=== PATIENT | female | born 1955 ===

== ENCOUNTER 2021-11-21 10:12 | Outpatient (REF) | payer MEDICAID, SELFPAY ==
--- NOTE | ~2021-11-21 | US_ITS ---
EXAMINATION: US RETROPERITONEAL COMPLETE (RENAL) CLINICAL INFORMATION: Hematuria. COMPARISON: None TECHNIQUE: Real-time imaging of the kidneys and bladder. FINDINGS: RIGHT KIDNEY: 10.9 x 4.2 x 5.3 cm (SAG x AP x TRV). The kidney is normal in size, contour, and echogenicity. Renal cortical thickness is normal. No focal parenchymal lesions or hydronephrosis. There is an echogenic stone without shadowing in the upper pole cortex measuring 0.3 x 0.4 cm and similar lower pole echogenic stone without shadowing measuring 0.5 x 0.3 cm. The lack of shadowing could represent small calcifications. There is no caliectasis. However, there is mild pelvic fullness visualized. LEFT KIDNEY: 11.0 x 5.0 x 4.7 cm (SAG x AP x TRV). The kidney is normal in size, contour, and echogenicity. Renal cortical thickness is normal. No calculi or focal parenchymal lesions. No hydronephrosis. BLADDER: Well distended and normal. Bilateral ureteral jets are demonstrated. Prevoid bladder volume is 238 mL. Postvoid bladder volume is 23.8 mL. US/US retroperitoneal comp IMPRESSION: Small echogenic stones versus calcification in the upper and lower pole right kidney but no caliectasis seen. There is mild right renal pelvic fullness. The left kidney is unremarkable. Small postvoid residual volume in the bladder. Normal bilateral ureteral jets seen.
== END 2021-11-21 10:13 | disposition home or self-care (01) ==
LOC: HO.US 10:12
PROVIDERS: PCP Nurse Practitioner Community Health; Visit Provider Nurse Practitioner Community Health
DX: R31.9 Hematuria, unspecified (principal)
CPT/HCPCS: 76770

== ENCOUNTER 2021-11-29 09:43 | Outpatient (REF) | payer MEDICAID, SELFPAY ==
--- NOTE | ~2021-11-29 | MM_ITS ---
EXAMINATION: MM SCREENING DIGITAL BREAST TOMOSYNTHESIS, BILATERAL CLINICAL INFORMATION: Screening. Asymptomatic. The lifetime risk of breast cancer based on the Tyrer-Cuzick Model is 4%. COMPARISON: Mammography: 11/04/2018, 05/05/2016, 02/23/2014. TECHNIQUE: Digital breast tomosynthesis is performed in both the craniocaudal and mediolateral oblique views along with computer-aided detection (CAD). Synthesized 2D images are generated from the tomosynthesis. FINDINGS: There are scattered areas of fibroglandular density (ACR BI-RADS breast composition Category b). There are no significant masses, abnormal calcifications, or other abnormalities. Parenchymal pattern is similar to prior studies. There is no developing density or architectural abnormality. The axilla and skin contours are unremarkable. No significant changes. MM/MM tomosynthesis screening BI IMPRESSION: No mammographic evidence of malignancy. ASSESSMENT: BI-RADS 1: Negative RECOMMENDATION: Routine annual mammography screening. This patient's information was entered into a reminder system with a target due date for their next mammogram.
== END 2021-11-29 09:44 | disposition home or self-care (01) ==
LOC: HO.MAMMO 09:43
PROVIDERS: PCP Nurse Practitioner Community Health; Visit Provider Nurse Practitioner Community Health
DX: Z12.31 Encounter for screening mammogram for malignant neoplasm of breast (principal)
CPT/HCPCS: 77063; 77067

== ENCOUNTER 2022-02-07 15:00 | Outpatient (RCR) | payer MEDICAID, SELFPAY | END 2022-02-25 17:47 | disposition home or self-care (01) | LOC: HO.PT 15:00 | PROVIDERS: PCP Nurse Practitioner Community Health; Visit Provider Nurse Practitioner Community Health | DX: M75.42 Impingement syndrome of left shoulder (principal) | CPT/HCPCS: 97110; 97140; 97162; 97530 ==

== ENCOUNTER → 2022-02-20 13:20 | Outpatient (BNVA) | payer MEDICAID, SELFPAY | PROVIDERS: PCP Nurse Practitioner Community Health | DX: N20.0 Calculus of kidney (principal) | CPT/HCPCS: 99202 ==

== ENCOUNTER 2022-03-27 06:53 | Outpatient (REF) | payer MEDICAID, SELFPAY ==
--- NOTE | ~2022-03-27 | XR_ITS ---
EXAMINATION: XR SHOULDER, LEFT CLINICAL INFORMATION: Pain. COMPARISON: None TECHNIQUE: Three views of the left shoulder. FINDINGS: There is loss of glenohumeral and AC joint space with inferior periarticular spurring. No visible acute fracture, dislocation or subluxation seen. The soft tissues are normal. XR/XR shoulder LT min 2V IMPRESSION: Mild degenerative changes glenohumeral and AC joint. No visible acute fracture, dislocation or lytic process seen.
== END 2022-03-27 06:54 | disposition home or self-care (01) ==
LOC: HO.HOSX 06:53
PROVIDERS: Visit Provider Physician Assistant
DX: M19.012 Primary osteoarthritis, left shoulder (principal)
CPT/HCPCS: 73030; 99202

== ENCOUNTER 2022-11-13 10:56 | Outpatient (REF) | payer MEDICARE, MEDICAID, SELFPAY ==
--- NOTE | ~2022-11-13 | US_ITS ---
EXAMINATION: US RETROPERITONEAL LIMITED (RENAL ONLY) CLINICAL INFORMATION: Calculus of kidney. COMPARISON: Ultrasound kidneys and bladder 11/21/2021. TECHNIQUE: Real-time imaging of the kidneys. FINDINGS: RIGHT KIDNEY: 11.5 x 4.0 x 5.6 cm (SAG x AP x TRV). The kidney is normal in size, contour, and echogenicity. Renal cortical thickness is normal. No calculi or focal parenchymal lesions. No hydronephrosis. There is a 3 mm echogenic focus in the upper pole of the right kidney. No associated shadowing. LEFT KIDNEY: 10.4 x 5.0 x 5.8 cm (SAG x AP x TRV). The kidney is normal in size, contour, and echogenicity. Renal cortical thickness is normal. No focal parenchymal lesions or hydronephrosis. There is a 2.2 cm echogenic shadowing focus in the left mid-lower kidney consistent with a calculus. There is slight prominence of the adjacent calyx. US/US renal BI IMPRESSION: 2.2 cm left mid-lower renal calculus with slight prominence of the adjacent lower pole calyx. Was not seen previously. 3 mm echogenic nonshadowing focus in the cortex of the upper pole the right kidney. This was present previously and is unchanged.
== END 2022-11-13 10:57 | disposition home or self-care (01) ==
LOC: HO.US 10:56
PROVIDERS: Visit Provider Urology
DX: N20.0 Calculus of kidney (principal)
CPT/HCPCS: 76775

== ENCOUNTER 2023-08-12 15:14 | Outpatient (REF) | payer MEDICARE, MEDICAID, SELFPAY | END 2023-08-12 15:15 | disposition home or self-care (01) | LOC: HO.US 15:14 | PROVIDERS: Absent Provider Urology; PCP Nurse Practitioner Community Health; Visit Provider Nurse Practitioner Community Health | DX: R10.9 Unspecified abdominal pain (principal) | CPT/HCPCS: 76770 ==

== ENCOUNTER 2023-08-13 07:32 | Outpatient (REF) | payer MEDICARE, MEDICAID, SELFPAY ==
[2023-08-13 07:48] LABS: MANUAL DIFF FLAG NO
[2023-08-13 08:49] LABS: Basophils Absolute Auto 0.1 X10*3/uL (0.0-0.2); Basophils Percent Auto 0.8 % (0-2); Eosinophils Absolute Auto 0.1 X10*3/uL (0.0-0.4); Eosinophils Percent Auto 1.6 % (0-4); Hematocrit 45.4 % (37.0-47.0); Hemoglobin 14.2 g/dl (12.0-16.0); Imm Gran Abs Auto 0.03 X10*3/uL (0.00-0.03); Imm Gran Pct Auto 0.5 % (0.0-0.4); Lymphocytes Absolute Auto 2.4 X10*3/uL (1.2-4.9); Lymphocytes Percent Auto 39.2 % (20-40); Mean Corpuscular HGB Conc 31.3 g/dl (31.0-35.0); Mean Corpuscular Hemoglobin 30.6 pg (27.0-33.0); Mean Corpuscular Volume 97.8 fL (80.0-98.0); Mean Platelet Volume 9.7 fL (9.4-12.3); Monocytes Absolute Auto 0.5 X10*3/uL (0.1-1.2); Monocytes Percent Auto 8.4 % (2-11); Neutrophils Absolute Auto 3.1 x10*3/uL (2.0-8.3); Neutrophils Percent Auto 49.5 % (45-73); Platelet Count 309 X10*3/uL (160-400); Red Blood Count 4.64 X10*6/uL (4.20-5.50); Red Cell Distribution Width 12.3 % (11.0-16.0); White Blood Count 6.2 X10*3/uL (4.8-10.8)
[2023-08-13 09:17] LABS: Alanine Aminotransferase 13 U/L (0-31); Albumin Level 4.5 g/dL (3.5-5.0); Alkaline Phosphatase 72 U/L (39-117); Anion Gap 14 (12-20); Aspartate Amino Transferase 13 U/L (5-31); Bilirubin Total 0.8 mg/dL (0.0-1.0); Blood Urea Nitrogen 16 mg/dL (9-16); Calcium 9.5 mg/dL (8.4-10.2); Carbon Dioxide 26 mmol/L (22-29); Chloride 106 mmol/L (96-108); Cholesterol 218 mg/dL (<200); Estimated Glomerular Filt Rate > 60; Glucose Random 114 mg/dL (60-115); HDL Cholesterol 55 mg/dL (>40); LDL Cholesterol Calculated 138 mg/dL (<100); Potassium 4.2 mmol/L (3.3-5.1); Sodium 142 mmol/L (135-145); Total Protein 7.8 g/dL (6.5-8.0); Triglycerides 128 mg/dL (<150)
== END 2023-08-13 07:33 | disposition home or self-care (01) ==
LOC: HO.LAB 07:32
PROVIDERS: Visit Provider Nurse Practitioner Community Health
DX: Z00.00 Encounter for general adult medical examination without abnormal findings (principal); R10.9 Unspecified abdominal pain
CPT/HCPCS: 36415; 80053; 80061; 85025

== ENCOUNTER 2023-09-03 11:24 | Outpatient (AMB) | payer MEDICARE, MEDICAID, SELFPAY ==
--- NOTE | 2023-09-03 11:36 | A.OFFVIS_ITS ---
Intake Intake Visit Reasons: follow up/ US Intake Note: Patient presents today for a follow-up on US Results: Meds- None Allergies to Antibiotic- No Known Allergies Blood Thinner- None Automobile Glass Technician Required: No Accompanied by: Daughter Allergies No Known Allergies Allergy (Mild, Verified 02/20/22 13:22) NA HPI HPI Comments History of Present Illness Details Tessa is a 67-year-old female who presents today to the office for a follow-up. 09/03/2023? She is followed today for US results. She has seen Dr. Novak on 02/20/2022 for kidney stones. Renal US in 6 months was ordered during that time. The Patient is not on any medications. She states that she has been healthy, she does take vitamins, calcium, magnesium, vitamin D supplements, as well as multi-vitamins. She states that she was diagnosed with kidney stones in [address] Novak on 02/20/2022. I reviewed the renal US results from 08/12/2023 revealed A 1.6 cm shadowing left renal lower pole calculus is seen. No definite right renal calculus is seen. I have discussed that there is a significant conflicting in measurements comparing to the 11/2022, and 08/2022 US. I want to further evaluate the kidneys with a CAT scan in follow-up. 09/03/2023: Plan: 24-hour urine collecti on test was ordered. CT stone protocol. Follow-up via Tele-health to discuss the results. Review of Systems Const All systems reviewed & are unremarkable except as noted in HPI and below Reports no additional complaints Eyes Reports no additional complaints ENT Reports no additional complaints Card Denies dyspnea Resp Denies cough and Denies dyspnea GI Reports no additional complaints Reports no additional complaints Musc Reports no additional complaints Skin/Breast Denies rash and Denies unusual bruising Neuro Reports no additional complaints Psych Reports no additional complaints Endo Reports no additional complaints Aram/Lymph Reports no additional complaints Aller/Immun Reports no additional complaints Physical Exam Const General: cooperative, healthy appearing and no acute distress Orientation/consciousness: patient oriented x3 HEENT Head: Yes normal to inspection, Yes normocephalic and Yes atraumatic Eyes Conjunctivae: conjunctivae normal Neck Neck: Yes normal visual inspection and Yes trachea midline Chest Chest palpation & inspection: normal inspection of the chest Resp Effort & Inspection: normal respiratory effort GI Inspection: Yes normal to inspection Skin General skin exam: no rashes or lesions noted Neuro General: patient oriented x3 Psych Appearance: grossly normal Results Reviewed Results Reviewed: Date of Service: 08/12/23 EXAMINATION: US RETROPERITONEAL COMPLETE (RENAL) CLINICAL INFORMATION: Right flank pain. COMPARISON: Bilateral renal ultrasound dated 11/13/2022. Retroperitoneal ultrasound complete dated 11/21/2021. FINDINGS: RIGHT KIDNEY: 10.6 x 5.2 x 5.1 cm (SAG x AP x TRV). The kidney is normal in size, contour, and echogenicity. Renal cortical thickness is normal. There is pelviectasis, without andreia hydronephrosis. No definite calculus is seen. At the interpolar aspect, a 4 x 4 by 4 mm hyperechoic, circumscribed, nonshadowing mass is seen, consistent with a benign angiomyolipoma. This is stable from 11/13/2022. LEFT KIDNEY: 10.6 x 5.4 x 4.9 cm (SAG x AP x TRV). The kidney is normal in size, contour, and echogenicity. Renal cortical thickness is normal. No focal parenchymal lesions or hydronephrosis. At the lower pole, a 1.6 cm shadowing, nonobstructing calculus is seen. BLADDER: Well distended and normal. Bilateral ureteral jets are demonstrated. Prevoid bladder volume is 332 mL. Postvoid bladder volume is 38 mL. INCIDENTAL FINDINGS: A 1.4 cm gallstone is seen. Within the right ovary, a 4.3 x 3.1 x 3.3 cm anechoic, simple cyst is seen. IMPRESSION: 1. A 1.6 cm shadowing left renal lower pole calculus is seen. No definite right renal calculus is seen. 2. There is right renal pelviectasis. No andreia hydronephrosis is seen bilaterally. 3. A stable 4 mm hyperechoic, circumscribed mass is seen at the interpolar right kidney, possibly a benign angiomyolipoma. If of continued clinical concern, this can be more fully evaluated with abdominal CT. ADDENDUM ADDENDUM: IMPRESSION: 4. There is cholelithiasis. 5. A 4.3 cm simple appearing cyst is seen. Recommend repeat pelvic ultrasound examination in 6-12 months for growth rate assessment. Addendum Dictated By: Bryan Zuleta MD Addendum Signed By: <Electronically signed by Bryan Zuleta MD in [place]> 08/17/231820 Addendum Cosigned By: DD/ /01/1615 TD/TT: / Assessment & Plan Assessment & Plan (1) Nephrolithiasis: Code(s): N20.0 - Calculus of kidney Plan 24-hour urine collection test was ordered. CT stone protocol. Follow-up via Tele-health to discuss the results. Patient Instructions: The patient had an opportunity to ask questions regarding treatment plan. All questions were answered. Imaging, Laboratory studies and physical exam results were discussed and reviewed in detail. No major barriers to understanding were identified. The patient expressed understanding and agreement with the above treatment plan. The patient is aware they should contact our office by phone for worsening of their current condition or the appearance of new symptoms. Compliance is encouraged with any medications and followup testing that is ordered. It is a privilege to be allowed the opportunity to participate in the urologic care of your patient. If you have any questions or concerns regarding treatment for the above conditions please do not hesitate to contact me. The office telephone contact is [phone]. This note is constructed in part using voice recognition software. While every effort has been made to ensure accuracy metal filer errors may have been included. Yours sincerely, Reshma De Leon MD Coding Level of Care Code Est Pt Level 4 (00935) Diagnoses Nephrolithiasis N20.0
== END 2023-09-03 12:07 | disposition home or self-care (01) ==
LOC: HO.HUSH 11:24
PROVIDERS: PCP Nurse Practitioner Community Health; Visit Provider Urology
DX: N20.0 Calculus of kidney (principal)
CPT/HCPCS: 99214

== ENCOUNTER → 2023-09-03 11:24 | Outpatient (BNVA) | payer MEDICARE, MEDICAID, SELFPAY | PROVIDERS: PCP Nurse Practitioner Community Health; Visit Provider Urology | DX: N20.0 Calculus of kidney (principal) | CPT/HCPCS: 99212 ==

== ENCOUNTER 2023-10-15 14:26 | Outpatient (REF) | payer MEDICARE, MEDICAID, SELFPAY ==
--- NOTE | ~2023-10-15 | MM_ITS ---
EXAMINATION: MM SCREENING DIGITAL BREAST TOMOSYNTHESIS, BILATERAL CLINICAL INFORMATION: Screening. Asymptomatic. COMPARISON: Mammography: 11/04/2018, 05/05/2016, 02/23/2014. TECHNIQUE: Digital breast tomosynthesis is performed in both the craniocaudal and mediolateral oblique views along with computer-aided detection (CAD). Synthesized 2D images are generated from the tomosynthesis. FINDINGS: There are scattered areas of fibroglandular density (ACR BI-RADS breast composition Category b). There are no suspicious masses, suspicious grouped calcifications, or areas of architectural distortion in either breast. The parenchymal pattern is stable from prior exams. MM/MM tomosynthesis screening BI IMPRESSION: No mammographic evidence of malignancy. ASSESSMENT: BI-RADS BI-RADS 1 - Negative RECOMMENDATION: Routine annual mammography screening. 1 year F/U This examination should not preclude the clinical evaluation of a suspicious palpable abnormality. This patient's information was entered into a reminder system with a target due date for their next mammogram.
== END 2023-10-15 14:27 | disposition home or self-care (01) ==
LOC: HO.MAMMO 14:26
PROVIDERS: PCP Nurse Practitioner Community Health; Visit Provider Nurse Practitioner Community Health
DX: Z12.31 Encounter for screening mammogram for malignant neoplasm of breast (principal)
CPT/HCPCS: 77063; 77067

== ENCOUNTER → 2023-10-15 14:45 | Outpatient (BNV) | payer MEDICARE, MEDICAID, SELFPAY | PROVIDERS: PCP Nurse Practitioner Community Health; Visit Provider Radiology Diagnostic Radiology | DX: Z12.31 Encounter for screening mammogram for malignant neoplasm of breast (principal) | CPT/HCPCS: 77063; 77067 ==

== ENCOUNTER 2024-01-28 15:07 | Outpatient (REF) | payer MEDICARE, MEDICAID, SELFPAY ==
--- NOTE | ~2024-01-28 | CT_ITS ---
EXAMINATION: CT ABDOMEN AND PELVIS WITHOUT CONTRAST CLINICAL INFORMATION: Renal calculus COMPARISON: 08/12/2023 ultrasound TECHNIQUE: Multidetector volumetric imaging was performed from the superior aspect of the liver through the pubic symphysis. Sagittal and coronal reformatted images were obtained on the technologist's workstation. This CT examination was performed using dose optimization techniques as appropriate, variously including the following: *Automated exposure control *Adjustment of mA and/or kV according to patient size (this includes techniques or standardized protocols for targeted exams where dose is matched to indication/reason for exam; i.e. extremities or head) *Use of iterative reconstruction technique DLP: 453 mGy-cm FINDINGS: LUNG BASES: The visualized lung bases are unremarkable. LIVER, GALLBLADDER, AND BILIARY TREE: The liver is normal in size, shape, and attenuation. No focal hepatic lesion or biliary ductal dilatation is present. The gallbladder is unremarkable with no evidence of radiopaque gallstones, gallbladder wall thickening, or obvious pericholecystic inflammatory changes. PANCREAS: Unremarkable. SPLEEN: Unremarkable. ADRENAL GLANDS: There is mild thickening of the mid to label of left adrenal gland. KIDNEYS AND URETERS: Right kidney is unremarkable. Left kidney revealed hydroureteronephrosis and large obstructing calculus in the left renal pelvis, measured approximately 1.4 cm. There is perinephric stranding surrounding the collecting system and proximal left ureter. BLADDER: Unremarkable. GASTROINTESTINAL TRACT: The small and large bowel are unremarkable. The appendix is not seen. ABDOMINAL WALL: No significant hernia is appreciated. LYMPH NODES: Normal. VASCULAR: Unremarkable. PELVIC VISCERA: There is large lobulated cystic structure in right adnexa, measured 7.2 x 6.2 x 4.0 cm OSSEOUS STRUCTURES: There are mild degenerative changes in L4-L5. CT/CT abdomen pelvis wo IV con IMPRESSION: 1. Obstructing calculus in the left renal pelvis with hydroureteronephrosis and perinephric stranding. 2. Large cystic structure in the right adnexa. 3. Mild thickening of left adrenal gland. Fleischner guidelines were followed.
== END 2024-01-28 15:08 | disposition home or self-care (01) ==
LOC: HO.CT 15:07
PROVIDERS: PCP Nurse Practitioner Community Health; Visit Provider Urology
DX: N20.0 Calculus of kidney (principal)
CPT/HCPCS: 74176

== ENCOUNTER 2024-02-04 11:38 | Outpatient (AMB) | payer MEDICARE, MEDICAID, SELFPAY ==
--- NOTE | 2024-02-04 11:45 | A.OFFVIS_ITS ---
Intake Intake Visit Reasons: 4m/CT Completed on 01/27 Intake Note: Patient presents today for a follow-up on CT Results: Meds- None Allergies to Antibiotic- No Known Allergies Blood Thinner- None Health Information Managers Required: No Accompanied by: Self / Same As Patient Allergies No Known Allergies Allergy (Mild, Verified 02/04/24 11:45) NA HPI HPI Comments History of Present Illness Details 02/04/24--Tessa is a 67-year-old female w ho presents today to the office for a follow-up. I reviewed recent CTAP- 1.4 cm stone left UPJ with mild hydronephrosis. The patient denies flank pain. I have discussed cystoscopy stent insertion and then followed by Left ESWL. Review of chart: 09/03/2023? She is followed today for US results. She has seen Dr. Novak on 02/20/2022 for kidney stones. Renal US in 6 months was ordered during that time. The Patient is not on any medications. She states that she has been healthy, she does take vitamins, calcium, magnesium, vitamin D supplements, as well as multi-vitamins. She states that she was diagnosed with kidney stones in [address] Novak on 02/20/2022. I reviewed the renal US results from 08/12/2023 revealed A 1.6 cm shadowing left renal lower pole calculus is seen. No definite right renal calculus is seen. I have discussed that there is a significant conflicting in measurements comparing to the 11/2022, and 08/2022 US. I want to further evaluate the kidneys with a CAT scan in follow-up. Plan: 24- hour urine collection test was ordered. CT stone protocol. Follow-up via Tele-health to discuss the results. 02/04/24- Plan - cystoscopy left retrogra de, left ureteral stent [facility] Medical History (Updated 02/09/24 @ 05:43 by Reshma De Leon MD) Impingement syndrome of left shoulder History of kidney stones Family History (Updated 02/04/24 @ 12:00 by GUADALUPE Bustamante) Mother No problems noted. Father No problems noted. Social History (Updated 02/04/24 @ 12:00 by GUADALUPE Bustamante) Alcohol intake: current Alcohol intake frequency: holidays/special occasions only Patient Tobacco Use Status: Former Tobacco user Quit Date: 1967 Review of Systems Const All systems reviewed & are unremarkable except as noted in HPI and below Reports no additional complaints Eyes Reports no additional complaints ENT Reports no additional complaints Card Reports no additional complaints Resp Reports no additional complaints GI Reports no additional complaints Reports as per HPI Musc Reports no additional complaints Skin/Breast Reports system reviewed and no additional complaints, except as documented Neuro Reports no additional complaints Psych Reports no additional complaints Endo Reports no additional complaints Aram/Lymph Reports no additional complaints Aller/Immun Reports no additional complaints Physical Exam Const General: cooperative, healthy appearing and no acute distress Orientation/consciousness: patient oriented x3 HEENT Head: Yes normal to inspection, Yes normocephalic and Yes atraumatic Eyes Conjunctivae: conjunctivae normal Neck Neck: Yes normal visual inspection and Yes trachea midline Chest Chest palpation & inspection: normal inspection of the chest Resp Effort & Inspection: normal respiratory effort Cardio Rate: regular rate GI Inspection: Yes normal to inspection Skin General skin exam: no rashes or lesions noted Neuro General: patient oriented x3 Extrem General: No edema Psych Appearance: grossly normal Results Reviewed Results Reviewed: Date of Service: 01/28/24 CT ABDOMEN AND PELVIS WITHOUT CONTRAST CLINICAL INFORMATION: Renal calculus COMPARISON: 08/12/2023 ultrasound TECHNIQUE: Multidetector volumetric imaging was performed from the superior aspect of the liver through the pubic symphysis. Sagittal and coronal reformatted images were obtained on the technologist's workstation. This CT examination was performed using dose optimization techniques as appropriate, variously including the following: *Automated exposure control *Adjustment of mA and/or kV according to patient size (this includes techniques or standardized protocols for targeted exams where dose is matched to indication/reason for exam; i.e. extremities or head) *Use of iterative reconstruction technique DLP: 453 mGy-cm FINDINGS: LUNG BASES: The visualized lung bases are unremarkable. LIVER, GALLBLADDER, AND BILIARY TREE: The liver is normal in size, shape, and attenuation. No focal hepatic lesion or biliary ductal dilatation is present. The gallbladder is unremarkable with no evidence of radiopaque gallstones, gallbladder wall thickening, or obvious pericholecystic inflammatory changes. PANCREAS: Unremarkable. SPLEEN: Unremarkable. ADRENAL GLANDS: There is mild thickening of the mid to label of left adrenal gland. KIDNEYS AND URETERS: Right kidney is unremarkable. Left kidney revealed hydroureteronephrosis and large obstructing calculus in the left renal pelvis, measured approximately 1.4 cm. There is perinephric stranding surrounding the collecting system and proximal left ureter. BLADDER: Unremarkable. GASTROINTESTINAL TRACT: The small and large bowel are unremarkable. The appendix is not seen. ABDOMINAL WALL: No significant hernia is appreciated. LYMPH NODES: Normal. VASCULAR: Unremarkable. PELVIC VISCERA: There is large lobulated cystic structure in right adnexa, measured 7.2 x 6.2 x 4.0 cm OSSEOUS STRUCTURES: There are mild degenerative changes in L4-L5. IMPRESSION: 1. Obstructing calculus in the left renal pelvis with hydroureteronephrosis and perinephric stranding. 2. Large cystic structure in the right adnexa. 3. Mild thickening of left adrenal gland. Assessment & Plan Assessment & Plan (1) Nephrolithiasis: Code(s): N20.0 - Calculus of kidney (2) Hydronephrosis, left: Code(s): N13.30 - Unspecified hydronephrosis Plan cystoscopy left retrograde, left ureteral stent Patient Instructions: The patient had an opportunity to ask questions regarding treatment plan. All questions were answered. Imaging, Laboratory studies and physical exam results were discussed and reviewed in detail. No major barriers to understanding were identified. The patient expressed understanding and agreement with the above treatment plan. The patient is aware they should contact our office by phone for worsening of their current condition or the appearance of new symptoms. Compliance is encouraged with any medications and followup testing that is ordered. It is a privilege to be allowed the opportunity to participate in the urologic care of your patient. If you have any questions or concerns regarding treatment for the above conditions please do not hesitate to contact me. The office telephone contact is [phone]. This note is constructed in part using voice recognition software. While every effort has been made to ensure accuracy faceter errors may have been included. Yours sincerely, Reshma De Leon MD Coding Level of Care Code Est Pt Level 4 (29801) Diagnoses Nephrolithiasis N20.0 Hydronephrosis, left N13.30
== END 2024-02-04 12:44 | disposition home or self-care (01) ==
PROVIDERS: PCP Nurse Practitioner Community Health; Visit Provider Urology
DX: N20.0 Calculus of kidney (principal); N13.30 Unspecified hydronephrosis
CPT/HCPCS: 99214

== ENCOUNTER → 2024-02-04 11:38 | Outpatient (BNVA) | payer MEDICARE, MEDICAID, SELFPAY | PROVIDERS: PCP Nurse Practitioner Community Health; Visit Provider Urology | DX: N13.30 Unspecified hydronephrosis (principal); N20.0 Calculus of kidney | CPT/HCPCS: 99212 ==

== ENCOUNTER 2024-02-09 07:28 | Day surgery (SDC) | payer MEDICARE, MEDICAID, SELFPAY ==
--- NOTE | 2024-02-05 14:08 | P.CONAN_ITS ---
Documented by User: Deborah Huntley NP 02/05/24 14:09 HPI - Anesthesia Eval Consult details Narrative: 68yo F for Left Cystoscopy, Ureteroroscopy, Retro, Laser, left urethero stent [facility] Active Problems Active Problems: All Active Problems (Updated 02/04/24 @ 11:58 by GUADALUPE Bustamante) Arthritis of left shoulder region (Acute) Nephrolithiasis (Acute) Past Medical History Medical History (Updated 02/09/24 @ 05:43 by Reshma De Leon MD) Impingement syndrome of left shoulder History of kidney stones Family History Family History (Updated 02/04/24 @ 12:00 by GUADALUPE Bustamante) Mother No problems noted. Father No problems noted. Surgical History Surgical History (Updated 02/09/24 @ 08:09 by Nicky Humphrey RN) Hx of colonoscopy Social History Social History (Updated 02/04/24 @ 12:00 by GUADALUPE Bustamante) Alcohol intake: current Alcohol intake frequency: holidays/special occasions only Patient Tobacco Use Status: Former Tobacco user Quit Date: 1967 Use of substances other than those prescribed or required for medical reasons: No Are you DNR?: No Advance Directives: No Advance Directives Information Provided: Yes Meds Allergies Allergy/AdvReac Type Severity Reaction Status Date / Time No Known Allergies Allergy Mild NA Verified 02/04/24 11:45 Home Medications Medication Instructions Recorded Confirmed Last Taken Type No Known Home Meds 09/03/23 09/03/23 Unknown History Assessment and Plan Assessment Anesthesia Assessment: Chart Reviewed Documented by User: Osorio Piper MD 02/09/24 08:42 PMFSH Past Medical History Medical History (Updated 02/09/24 @ 05:43 by Reshma De Leon MD) Impingement syndrome of left shoulder History of kidney stones Family History Family History (Updated 02/04/24 @ 12:00 by GUADALUPE Bustamante) Mother No problems noted. Father No problems noted. Family history of problems with anesthesia: No Surgical History Surgical History (Updated 02/09/24 @ 08:09 by Nicky Humphrey RN) Hx of colonoscopy History of Problems with Anesthesia: No Social History Social History (Updated 02/04/24 @ 12:00 by GUADALUPE Bustamante) Alcohol intake: current Alcohol intake frequency: holidays/special occasions only Patient Tobacco Use Status: Former Tobacco user Quit Date: 1967 Use of substances other than those prescribed or required for medical reasons: No Are you DNR?: No Advance Directives: No Advance Directives Information Provided: Yes Meds Allergies Allergy/AdvReac Type Severity Reaction Status Date / Time No Known Allergies Allergy Mild NA Verified 02/04/24 11:45 Home Medications Medication Instructions Recorded Confirmed Last Taken Type No Known Home Meds 09/03/23 09/03/23 Unknown History Exam Airway Mallampati Class: I TM Dist: >3cm Neck ROM: Full Loose/Missing/Broken Teeth: No Heart: rr Lungs: cta Assessment and Plan Final Anesthetic Review Family History of Problems with Anesthesia: No History of Problems with Anesthesia: No NPO: Yes ASA Class: I Final Preanesthetic Review: No Changes in Pt Med Stat, Meds/Allgs Chart Reviewed, Consent Obtained/Reviewed and Anes Risks/Benef Reviewed Patient Risk: Low Procedure Risk: Low Anesthetic Plan Anesthetic Plan: GA Disposition: Standard PACU
--- NOTE | ~2024-02-09 | FL_ITS ---
EXAMINATION: XR FLUOROSCOPY WITH IMAGES CLINICAL INFORMATION: Intraoperative intraoperative fluoroscopy during stent placement. COMPARISON: None available. TECHNIQUE: Fluoroscopy Supervised By: Dr. Salazar. Fluoroscopy Time: 10.4 seconds. Cumulative Dose: 3.12 mGy. Images: 3. FINDINGS: Please refer to procedural note for full details. FL/FL guidance in OR IMPRESSION: Intraoperative fluoroscopy.
[2024-02-09 08:05] VITALS: BMI 28.4
[2024-02-09 08:20] VITALS: BP 141/94; PULSE 76; RESP 16; TEMP 36.7; O2SAT 95
[2024-02-09] MEDS: Lactated Ringers 1,000 ML 100 ML IVCONT (08:29)
--- NOTE | 2024-02-09 08:40 | MHC.SHP ---
Pre-Procedural Eval Section A - 24 Hr Update-Section A only Date of Service: 02/09/24 The patient is an INPATIENT: No The patient has been examined within 24 hours of the surgical procedure. The History & Physical has been completed within 30 days and I have reviewed it.: Yes Section B - Complete if H&P > 30 days Chief Complaint: Calculus of kidney Allergies: Allergies Allergy/AdvReac Type Severity Reaction Status Date / Time No Known Allergies Allergy Mild NA Verified 02/04/24 11:45 Plan Diagnosis/Plan: Unchanged I have reviewed the history and physical and performed a pertinent physical examination on my patient. No changes have occurred unless specified. Cystoscopy left retrograde left ureteral stent Time Spent With Patient Time: Total time managing care of this patient today ____ minutes.
[2024-02-09 09:43] VITALS: BP 128/81; PULSE 65; RESP 17; TEMP 36.3; O2SAT 99
[2024-02-09 09:48] VITALS: BP 121/86; PULSE 63; RESP 16; O2SAT 95
--- NOTE | 2024-02-09 09:51 | P.CONAN_ITS ---
[facility] Active Problems Active Problems: All Active Problems (Updated 02/09/24 @ 05:43 by Reshma De Leon MD) Hydronephrosis, left (Acute) Arthritis of left shoulder region (Acute) Nephrolithiasis (Acute) Past Medical History Medical History (Updated 02/09/24 @ 05:43 by Reshma De Loen MD) Impingement syndrome of left shoulder History of kidney stones Family History Family History (Updated 02/04/24 @ 12:00 by GUADALUPE Bustamante) Mother No problems noted. Father No problems noted. Family history of problems with anesthesia: No Surgical History Surgical History (Updated 02/09/24 @ 08:09 by Nicky Humphrey RN) Hx of colonoscopy History of Problems with Anesthesia: No Social History Social History (Updated 02/04/24 @ 12:00 by GUADALUPE Bustamante) Alcohol intake: current Alcohol intake frequency: holidays/special occasions only Patient Tobacco Use Status: Former Tobacco user Quit Date: 1967 Meds Allergies Allergy/AdvReac Type Severity Reaction Status Date / Time No Known Allergies Allergy Mild NA Verified 02/04/24 11:45 Active Medications: Current Medications Fentanyl (Fentanyl Citrate/Pf 100 Mcg/2 Ml Vial) 25 mcg IVPUSH Q5M PRN; Protocol PRN Reason: Pain, Moderate(Pain Scale 4-6) Stop: 02/09/24 14:44 Fentanyl (Fentanyl Citrate/Pf 100 Mcg/2 Ml Vial) 25 mcg IVPUSH Q5M PRN; Pr otocol PRN Reason: Pain, Moderate(Pain Scale 4-6) Stop: 02/09/24 15:50 Hydromorphone HCl (Hydromorphone Hcl 0.5 Mg/0.5 Ml Syringe) 0.5 mg IVPUSH Q5M PRN; Protocol PRN Reason: Pain, Severe (Pain Scale 7-10) Stop: 02/09/24 14:45 Lactated Ringer's (Lr) 1,000 mls @ 100 mls/hr IVCONT .Q10H BARRIE Last Admin: 02/09/24 08:29 Dose: 100 mls/hr Exam Height,Weight and Vital Signs: Height 5 ft 4 in Weight 75.013 kg Last Vital Signs Temp 97.3 F 02/09/24 09:43 Pulse 63 02/09/24 09:48 Resp 16 02/09/24 09:48 BP 121/86 02/09/24 09:48 Pulse Ox 95 02/09/24 09:48 O2 Del Method Room Air 02/09/24 09:48 O2 Flow Rate 6 02/09/24 09:43 Airway Mallampati Class: III TM Dist: <=3cm Neck ROM: Full Loose/Missing/Broken Teeth: No Heart: rrr Lungs: cta but distant Assessment and Plan Final Anesthetic Review Family History of Problems with Anesthesia: No History of Problems with Anesthesia: No NPO: Yes ASA Class: III Final Preanesthetic Review: No Changes in Pt Med Stat, Meds/Allgs Chart Reviewed, Consent Obtained/Reviewed and Anes Risks/Benef Reviewed Patient Risk: Intermediate Procedure Risk: Low Anesthetic Plan Anesthetic Plan: GA Disposition: Standard PACU
[2024-02-09 09:53] VITALS: BP 124/84; PULSE 67; RESP 16; O2SAT 93
--- NOTE | 2024-02-09 09:56 | W.PM.OPN ---
Operative Note Operative Note Date of Service: 02/09/24 Narrative: PreOperative Diagnosis:?? Left UPJ stone left hydronephrosis Post Operative Diagnosis:?? ?Left UPJ stone left hydronephrosis Procedure: - cystoscopy, left retrograde - left stent insertion, size 6 Belgian by 26 cm Surgeon:?Dr Reshma De Leon Anesthesia:? General Indications for procedure: A 1.4 cm left UPJ stone with hydronephrosis noted on CT imaging, the patient is being brought in for stent placement discussed shockwave lithotripsy for stone fragmentation. Procedure: After informed consent was verified the patient was brought to the operating placed on the OR table in supine position.? General Anesthesia was administered per protocol.? The patient was placed in lithotomy position, prepped and draped in the usual sterile fashion.? Safety pause time-out and side of surgery confirmed.? Antibiotics confirmed. A 22 Belgian cystoscope was inserted transurethrally, The bladder was visualized.? Both ureteric orifices were in normal position. The? left ureteric orifice was cannulated? and a retrograde examination was performed, contrast passed up into the renal pelvis, and the calyces was noted to be dilated. A hydrophilic guidewire was placed up to the level of the renal pelvis under fluoroscopy. A 6 fr by 26 cm ureteral stent was passed over the guide wire under fluoroscopic guidance. The guide wire was removed. The bladder was emptied.? The rigid cystoscope was removed. ? The patient tolerated the procedure well and was brought to the recovery room in stable condition. Complications: None Drains: Ureteral stent as dictated above
[2024-02-09 09:58] VITALS: BP 125/85; PULSE 67; RESP 16; O2SAT 95
[2024-02-09 10:13] VITALS: BP 135/86; PULSE 66; RESP 16; TEMP 36.3; O2SAT 96
== END 2024-02-09 10:45 | disposition home or self-care (01) ==
PROVIDERS: PCP Nurse Practitioner Community Health; Visit Provider Urology
PROC: (CPT 52332; principal; 2024-02-09 09:00)
DX: N13.2 Hydronephrosis with renal and ureteral calculous obstruction (principal)
CPT/HCPCS: 52332; C1758; C1769; C2617; J0131; J0690; J2250; J2704; J3010; Q9967

== ENCOUNTER → 2024-02-09 07:28 | Outpatient (BNV) | payer MEDICARE, MEDICAID, SELFPAY | PROVIDERS: PCP Nurse Practitioner Community Health; Visit Provider Urology | DX: N20.0 Calculus of kidney (principal) | CPT/HCPCS: 50590; 52332; 74420 ==

== ENCOUNTER 2024-02-10 08:42 | Day surgery (SDC) | payer MEDICARE, MEDICAID, SELFPAY ==
--- NOTE | ~2024-02-10 | XR_ITS ---
EXAMINATION: XR ABDOMEN KUB CLINICAL INDICATION: Left kidney stone. COMPARISON: CT abdomen and pelvis dated 02/03/2024. TECHNIQUE: 2 AP views of the abdomen and pelvis are submitted. FINDINGS: The bowel gas pattern is normal with no evidence of ileus or obstruction. A 2.0 cm ovoid left renal pelvis calculus is seen. No further urinary calculus is noted. There is a well-positioned double pigtail left ureteric stent. No acute osseous abnormality is seen. XR/XR KUB IMPRESSION: A 2.0 cm left renal pelvis calculus is seen. There is a well-positioned double pigtail left ureteric stent.
[2024-02-10 09:03] VITALS: BP 165/92; PULSE 95; RESP 20; TEMP 36.1; O2SAT 97; BMI 28.4
[2024-02-10] MEDS: Acetaminophen 1,000 MG/100 ML PIGGYBACK 400 MG IV (09:18)
[2024-02-10] MEDS: Lactated Ringers 500 ML 999 ML IV (09:19)
--- NOTE | 2024-02-10 10:01 | HO.ANESPROP2 ---
[facility] Active Problems Active Problems: All Active Problems (Updated 02/09/24 @ 05:43 by Reshma De Leon MD) Hydronephrosis, left (Acute) Arthritis of left shoulder region (Acute) Nephrolithiasis (Acute) Past Medical History Medical History Impingement syndrome of left shoulder History of kidney stones Family History Family History Mother No problems noted. Father No problems noted. Family history of problems with anesthesia: No Surgical History Surgical History Hx of colonoscopy History of Problems with Anesthesia: No Social History Social History Alcohol intake: current Alcohol intake frequency: does not drink Patient Tobacco Use Status: Former Tobacco user Quit Date: 1967 Are you DNR?: No Advance Directives: No Advance Directives Information Provided: Yes Nutrition Risks: No Nutritional Risk Meds Allergies Allergy/AdvReac Type Severity Reaction Status Date / Time No Known Allergies Allergy Mild NA Verified 02/04/24 11:45 Exam Height,Weight and Vital Signs: Height 5 ft 4 in Weight 74.933 kg Last Vital Signs Temp 97 F 02/10/24 09:03 Pulse 95 02/10/24 09:03 Resp 20 02/10/24 09:03 BP 165/92 H 02/10/24 09:03 Pulse Ox 97 02/10/24 09:03 O2 Del Method Room Air 02/10/24 09:03 Airway Mallampati Class: II TM Dist: >3cm Neck ROM: Full Loose/Missing/Broken Teeth: No Heart: RRR Lungs: CTA Assessment and Plan Final Anesthetic Review Family History of Problems with Anesthesia: No History of Problems with Anesthesia: No ASA Class: II Final Preanesthetic Review: Meds/Allgs Chart Reviewed, Consent Obtained/Reviewed and Anes Risks/Benef Reviewed Patient Risk: Low Procedure Risk: Low Anesthetic Plan Anesthetic Plan: MAC: Disposition: Standard PACU
--- NOTE | 2024-02-10 10:05 | PC.NURSE ---
pt received 1liter of fluidsin sss
--- NOTE | 2024-02-10 10:14 | MHC.SHP ---
Pre-Procedural Eval Section A - 24 Hr Update-Section A only Date of Service: 02/10/24 The patient is an INPATIENT: No Section B - Complete if H&P > 30 days Chief Complaint: Calculus of kidney Details of Present Illness: 68 year old female s/p left ureteral stent on 02/09/24 scheduled for left ESWL Allergies: Allergies Allergy/AdvReac Type Severity Reaction Status Date / Time No Known Allergies Allergy Mild NA Verified 02/04/24 11:45 Plan Diagnosis/Plan: Unchanged I have reviewed the history and physical and performed a pertinent physical examination on my patient. No changes have occurred unless specified. Left ESWL. Discussed risks to include but not limited to, blood in the urine, bruising to the skin, kidney hematoma, possible need for another procedure if a stone fragment obstructs the ureter while passing, possible need to repeat procedure if stone is not completely fragmented. Time Spent With Patient Time: Total time managing care of this patient today ____ minutes.
--- NOTE | 2024-02-10 11:00 | W.PM.OPN ---
Operative Note Operative Note Date of Service: 02/10/24 Narrative: PreOperative Diagnosis:? ? Left UPJ Renal stone s/p Left ureteral stent Post Operative Diagnosis:?Left UPJ Renal stone s/p Left ureteral stent Procedure:?Left? ESWL Surgeon:?Dr Reshma De Leon Anesthesia:? MAC Indications for procedure: The patient understands there is a risk of bruising or hematoma to the kidney, infection, and stone migration following the procedure and subsequent intervention may be required.? - Imaging 1.7 cm stone Procedure: After informed consent was verified the patient was brought to the operating room and placed in a supine position.? Monitored sedation was performed per protocol. Safety pause time-out was performed. Imaging was displayed in the room and laterality confirmed. ESWL was performed.?The stone was visualized on both fluoroscopy and ultrasound.? Shockwave lithotripsy was performed, with a maximum rate of 120 hertz. After the first 300 shocks a pause for 3 minutes was completed.? A total of 2500 shocks to a maximum of power of 18 with a maximum rate of 120 hertz.? Fragmentation of the stone was appreciated with a larger fragment migrating into the left kidney lower pole. The patient tolerated the procedure well and was transferred to the recovery area upon completion. Complications: None
[2024-02-10 11:05] VITALS: BP 180/99; PULSE 79; RESP 18; TEMP 36.5; O2SAT 97
[2024-02-10 11:20] VITALS: BP 182/86; PULSE 71; RESP 16; TEMP 36.5; O2SAT 98
[2024-02-10 11:35] VITALS: BP 167/108; PULSE 67; RESP 16; O2SAT 99
[2024-02-10] MEDS: Phenazopyridine HCL 200 MG TABLET PO (11:36)
[2024-02-10 11:50] VITALS: BP 189/97; PULSE 66; RESP 16; TEMP 36.1; O2SAT 99
== END 2024-02-10 12:17 | disposition home or self-care (01) ==
PROVIDERS: PCP Nurse Practitioner Community Health; Visit Provider Urology
PROC: (CPT 50590; principal; 2024-02-10 14:50)
DX: N20.0 Calculus of kidney (principal); Z96.0 Presence of urogenital implants
CPT/HCPCS: 50590; 74018; J0131; J0690; J1940; J2250; J2704; J3010

== ENCOUNTER → 2024-02-10 08:42 | Outpatient (BNV) | payer MEDICARE, MEDICAID, SELFPAY | PROVIDERS: PCP Nurse Practitioner Community Health; Visit Provider Urology | DX: N20.0 Calculus of kidney (principal); Z96.0 Presence of urogenital implants | CPT/HCPCS: 50590 ==

== ENCOUNTER 2024-02-25 09:39 | Outpatient (REF) | payer MEDICARE, MEDICAID, SELFPAY ==
--- NOTE | ~2024-02-25 | XR_ITS ---
EXAMINATION: XR ABDOMEN KUB CLINICAL INDICATION: Status-post ESWL and left ureteric stent placement. COMPARISON: KUB dated 02/10/2024; CT abdomen and pelvis dated 02/03/2024. TECHNIQUE: 2 AP views of the abdomen and pelvis are submitted. FINDINGS: The bowel gas pattern is normal, with no evidence of ileus or obstruction. A 2.1 cm left renal lower pole calculus is redemonstrated. No further calculus is noted. There is stable, good positioning of a double pigtail left ureteric stent. No acute osseous abnormality is seen. XR/XR KUB IMPRESSION: Stable examination. A 2.1 cm left renal calculus is seen, now positioned in the expected vicinity of a lower pole calyx. A well-positioned double pigtail left ureteric stent is seen.
== END 2024-02-25 09:40 | disposition home or self-care (01) ==
LOC: HO.XRAY 09:39
PROVIDERS: PCP Nurse Practitioner Community Health; Visit Provider Urology
DX: N20.0 Calculus of kidney (principal); Z96.0 Presence of urogenital implants
CPT/HCPCS: 74018

== ENCOUNTER 2024-03-10 14:04 | Outpatient (REF) | payer MEDICARE, MEDICAID, SELFPAY ==
[2024-03-10 16:00] LABS: Urine Cytology See Pathology rpt
== END 2024-03-10 14:05 | disposition home or self-care (01) ==
LOC: HO.LAB 14:04
PROVIDERS: PCP Nurse Practitioner Community Health; Visit Provider Urology
DX: N20.0 Calculus of kidney (principal); R31.29 Other microscopic hematuria
CPT/HCPCS: 52310; 81003

== ENCOUNTER 2024-03-10 14:04 | Outpatient (AMB) | payer MEDICARE, MEDICAID, SELFPAY ==
--- NOTE | 2024-03-10 14:24 | MHC.OFFVIS ---
Intake Visit Reasons: Stent Removal, Retrograde/ESWL- follow up Intake Note: Patient presents today for a CYSTOSCOPY Procedure: Meds: None Allergies to Antibiotic: No Known Allergies Blood Thinner: None Urinalysis test clear for Cysto? YES Disposable Uro-G HD Cystoscope Cannula: Lot: [id number] Exp: 11/10/2026 Synthetic Staple Extruder Required: No Accompanied by: Self / Same As Patient Allergies No Known Allergies Allergy (Mild, Verified 03/10/24 14:24) NA HPI Comments Details: 03/10/2024. Tessa is here for cysto stent removal. Review of KUB Xray notes Left kidney stone there is some change in stone consistency post ESWL but stone burden remaining is similar to pre-ESWL. Discussed repeat Left ESWL. Review of chart: 02/04/24--Tessa is a 67-year-old female who presents today to the office for a follow-up. I reviewed recent CTAP- 1.4 cm stone left UPJ with mild hydronephrosis. The patient denies flank pain. I have discussed cystoscopy stent insertion and then followed by Left ESWL. 09/03/2023? She is followed today for US results. She has seen Dr. Novak on 02/20/2022 for kidney stones. Renal US in 6 months was ordered during that time. The Patient is not on any medications. She states that she has been healthy, she does take vitamins, calcium, magnesium, vitamin D supplements, as well as multi-vitamins. She states that she was diagnosed with kidney stones in [address] Novak on 02/20/2022. I reviewed the renal US results from 08/12/2023 revealed A 1.6 cm shadowing left renal lower pole calculus is seen. No definite right renal calculus is seen. I have discussed that there is a significant conflicting in measurements comparing to the 11/2022, and 08/2022 US. I want to further evaluate the kidneys with a CAT scan in follow-up. Plan: 24-hour urine collection test was ordered. CT stone protocol. Follow-up via Tele-health to discuss the results. [facility] Medical History Impingement syndrome of left shoulder History of kidney stones Surgical History Hx of colonoscopy Family History Mother No problems noted. Father No problems noted. Social History Alcohol intake: current Alcohol intake frequency: does not drink Patient Tobacco Use Status: Former Tobacco user Quit Date: 1967 Office Procedures Cystoscopy Consent Discussed risk and benefit or proposed procedure with the patient. Information consent for procedure given to the patient. Discussed technical aspects, risks, benefits and alternatives in full. Addressed all of the patient's questions and concerns regarding the procedure. The patient demonstrated knowledge and understanding. They wish to proceed with this procedure. Preparation The patient was prepped in the usual manner. A supervisor travel trailer was present and in the room. Genitalia was prepped with betadine solution in a sterile manner. Lidocaine Jelly 2% was placed into the urethra and 16Fr flexible Olympus cystoscope was inserted into the meatus after adequate lubrication. Procedure Time out per protocol performed. Bladder Inspection Cystoscopy findings: mild edema ureteral orifice which is expected, distal end of ureteral stent visualized. The grasping forceps were used and the stent was removed without difficulty. 99254-Kykbggommo with stent removal DISPOSABLE SCOPE URO-G FLEXIBLE SCOPE Procedure code (CPT) selection complete Office Meds lidocaine HCl 2 % mucosal jelly in applicator Performing Provider: Reshma De Leon MD Performing Location[facility] [place] [facility] Administered by: Zia Perrin LPN on 03/10/24 14:43 Dose Route Admin Location Dispensed Lot Number Expiration Date [facility] Collaborative Physician 10 mL intra-urethral 20 mL naproxen 500 mg tablet Performing Provider: Reshma De Leon MD Performing Location: [facility] [place] [facility] Administered by: Zia Perrin LPN on 03/10/24 14:43 Dose Route Admin Location Dispensed Lot Number Expiration Date [place] Collaborative Physician 500 mg PO 1 tab ciprofloxacin HCl 500 mg tablet Performing Provider: Reshma De Leon MD Performing Location: [facility] [place] [facility] Administered by: Zia Perrin LPN on 03/10/24 14:43 Dose Route Admin Location Dispensed Lot Number Expiration Date [facility] Collaborative Physician 500 mg PO 1 tab Results AMB Urinalysis, Automated UA Leukoctes 15 Carlos/uL Last Edit by Ade Khan Kailyn on 03/10/24 14:23 UA Nitrite Negative Last Edit by Ade Khan [facility] on 03/10/24 14:23 UA Urobilinogen 0.2 mg/dL Last Edit by Ade Khan, A on 03/10/24 14:23 UA Protein 300 mg/dL Last Edit by Ade Khan [facility] on 03/10/24 14:23 3+ Ade Khan 03/10/24 14:23 UA pH 6.0 Last Edit by Ade Khan, [facility] on 03/10/24 14:23 UA Blood 200 Landon/uL Last Edit by Ade Khan [facility] on 03/10/24 14:23 3+ Ade Khan 03/10/24 14:23 UA Specific Keyes 1.025 Last Edit by Ade Khan [facility] on 03/10/24 14:23 UA Ketone Negative Last Edit by Ade Khan [facility] on 03/10/24 14:23 UA Bilirubin 0 mg/dL Last Edit by Ade Khan, [facility] on 03/10/24 14:23 UA Glucose 0 mg/dL Last Edit by Ade Khan [facility] on 03/10/24 14:23 Results Reviewed Results Reviewed: Laboratory Last Values Urine pH (Auto) 6.0 03/10/24 14:22 Specific Keyes (Auto) 1.025 03/10/24 14:22 Urine Protein (Auto) 300 mg/dL 03/10/24 14:22 Glucose (UA)(Auto) 0 mg/dL 03/10/24 14:22 Urine Ketones (Auto) Negative 03/10/24 14:22 Urine Blood (Auto) 200 Landon/uL 03/10/24 14:22 Urine Nitrite (Auto) Negative 03/10/24 14:22 Urine Bilirubin (Auto) 0 mg/dL 03/10/24 14:22 Urine Urobilinogen (Auto) 0.2 mg/dL 03/10/24 14:22 Leukocyte Esterase (Auto) 15 Carlos/uL 03/10/24 14:22 Date of Service: 02/25/24 EXAMINATION: XR ABDOMEN KUB CLINICAL INDICATION: Status-post ESWL and left ureteric stent placement. COMPARISON: KUB dated 02/10/2024; CT abdomen and pelvis dated 02/03/2024. TECHNIQUE: 2 AP views of the abdomen and pelvis are submitted. FINDINGS: The bowel gas pattern is normal, with no evidence of ileus or obstruction. A 2.1 cm left renal lower pole calculus is redemonstrated. No further calculus is noted. There is stable, good positioning of a double pigtail left ureteric stent. No acute osseous abnormality is seen. XR/XR KUB IMPRESSION: Stable examination. A 2.1 cm left renal calculus is seen, now positioned in the expected vicinity of a lower pole calyx. A well-positioned double pigtail left ureteric stent is seen. Assessment & Plan Assessment & Plan (1) Nephrolithiasis: Code(s): N20.0 - Calculus of kidney Category: Medical Plan Repeat left ESWL Orders: Orders AMB Urinalysis Automated 03/10/24 Z13.9 - Encounter for screening, unspecified Urine Cytology 03/10/24 R31.29 - Other microscopic hematuria AMB Cystoscopy 03/10/24 Z96.0 - Presence of urogenital implants Patient Instructions: The patient had an opportunity to ask questions regarding treatment plan. The patient expressed understanding and agreement with the above treatment plan. The patient is aware they should contact our office by phone for worsening of their current condition or the appearance of new symptoms. Compliance is encouraged with any medications and followup testing that is ordered. It is a privilege to be allowed the opportunity to participate in the urologic care of your patient. If you have any questions or concerns regarding treatment for the above conditions please do not hesitate to contact me. The office telephone contact is [phone]. This note is constructed in part using voice recognition software. While every effort has been made to ensure accuracy program clerk errors may have been included. Yours sincerely, Reshma De Leon MD Coding Level of Care Code Procedure Only Diagnoses Nephrolithiasis N20.0 CPT Codes Cystoscopy - CPT: 65017-Foexxacxfm with stent removal ([id number])
== END 2024-03-10 15:26 | disposition home or self-care (01) ==
PROVIDERS: PCP Nurse Practitioner Community Health; Visit Provider Urology
DX: Z96.0 Presence of urogenital implants (principal); Z13.9 Encounter for screening, unspecified
CPT/HCPCS: 52310

== ENCOUNTER 2024-03-21 09:40 | Outpatient (REF) | payer MEDICARE, MEDICAID, SELFPAY ==
[2024-03-21 10:15] LABS: Urine Cytology See Pathology rpt
== END 2024-03-21 09:41 | disposition home or self-care (01) ==
LOC: HO.LAB 09:40
PROVIDERS: PCP Nurse Practitioner Community Health; Visit Provider Urology
DX: R31.29 Other microscopic hematuria (principal)
CPT/HCPCS: 88112

== ENCOUNTER 2024-05-05 10:42 | Outpatient (REF) | payer MEDICARE, MEDICAID, SELFPAY ==
--- NOTE | ~2024-05-05 | XR_ITS ---
EXAMINATION: XR WRIST, LEFT CLINICAL INFORMATION: Left wrist pain, mild swelling. COMPARISON: None available. TECHNIQUE: Four views of the left wrist. FINDINGS: Moderate degenerative changes in the first carpometacarpal and metacarpophalangeal joints with joint space narrowing and hypertrophic change. Alignment preserved. XR/XR wrist LT min 3V IMPRESSION: 1. Moderate degenerative changes in the first carpometacarpal and metacarpophalangeal joints.
== END 2024-05-05 10:43 | disposition home or self-care (01) ==
LOC: HO.XRAY 10:42
PROVIDERS: PCP Nurse Practitioner Community Health; Visit Provider Nurse Practitioner Family
DX: M25.532 Pain in left wrist (principal)
CPT/HCPCS: 73110

== ENCOUNTER 2024-05-11 05:59 | Day surgery (SDC) | payer MEDICARE, MEDICAID, SELFPAY ==
[2024-05-09 13:46] VITALS: BMI 28.4
[2024-05-11] VITALS (9 sets, daily range): BP systolic 114–154; BP diastolic 73–95; PULSE 58–74; RESP 16–18; TEMP 36.1–36.6; O2SAT 92–99; BMI 28.1
--- NOTE | ~2024-05-11 | XR_ITS ---
EXAMINATION: XR ABDOMEN KUB CLINICAL INDICATION: Pre-ESWL. COMPARISON: 02/25/2024. TECHNIQUE: 2 AP views of the abdomen. FINDINGS: Levoscoliosis of the lumbar spine with degenerative changes. Brchltci-hx-wyoon amount of stool throughout the colon. Nonobstructive bowel gas pattern. Previously identified 2.1 cm left renal calculus is not visualized. No definitive renal calculi are appreciated, although evaluation is limited due to overlying bowel. Small 2 mm rounded calcification left hemipelvis may represent a phlebolith versus distal ureteral calculus. XR/XR KUB IMPRESSION: 1. Previously identified 2.1 cm left renal calculus is not visualized. No definitive renal calculi are appreciated, although evaluation is limited due to overlying bowel. 2. Small 2 mm rounded calcification left hemipelvis may represent a phlebolith versus distal ureteral calculus.
--- NOTE | 2024-05-11 07:07 | MHC.SHP ---
Pre-Procedural Eval Section A - 24 Hr Update-Section A only Date of Service: 05/11/24 The patient is an INPATIENT: No The patient has been examined within 24 hours of the surgical procedure. The History & Physical has been completed within 30 days and I have reviewed it.: Yes Section B - Complete if H&P > 30 days Chief Complaint: left renal calculi Allergies: Allergies Allergy/AdvReac Type Severity Reaction Status Date / Time No Known Allergies Allergy Mild NA Verified 03/10/24 14:24 Plan Diagnosis/Plan: Unchanged I have reviewed the history and physical and performed a pertinent physical examination on my patient. No changes have occurred unless specified. Left ESWL. Discussed risks to include but not limited to, blood in the urine, bruising to the skin, kidney hematoma, possible need for another procedure if a stone fragment obstructs the ureter while passing, possible need to repeat procedure if stone is not completely fragmented. Time Spent With Patient Time: Total time managing care of this patient today ____ minutes.
--- NOTE | 2024-05-11 07:22 | HO.ANESPROP2 ---
HPI - Anesthesia Eval Consult details Narrative: for left ESWL PMFSH Active Problems Active Problems: All Active Problems Ureteral stent present (Acute) Kidney stone on left side (Acute) Hydronephrosis, left (Acute) Arthritis of left shoulder region (Acute) Nephrolithiasis (Acute) Past Medical History Medical History (Updated 02/10/24 @ 11:09 by Reshma De Leon MD) Impingement syndrome of left shoulder History of kidney stones Family History Family History Mother No problems noted. Father No problems noted. Family history of problems with anesthesia: No Surgical History Surgical History (Updated 05/09/24 @ 13:48 by Dinorah Hernadez RN) Hx of lithotripsy Hx of cystoscopy Hx of colonoscopy History of Problems with Anesthesia: No Social History Social History Alcohol intake: current Alcohol intake frequency: does not drink Patient Tobacco Use Status: Former Tobacco user Use of substances other than those prescribed or required for medical reasons: No Are you DNR?: No Advance Directives: No Advance Directives Information Provided: Yes Meds Allergies Allergy/AdvReac Type Severity Reaction Status Date / Time No Known Allergies Allergy Mild NA Verified 03/10/24 14:24 Home Medications ?Medication ?Instructions ?Recorded ?Confirmed ?Last Taken ?Type No Known Home Meds 05/11/24 05/11/24 Unknown History Exam Height,Weight and Vital Signs: Height 5 ft 4 in Weight 74.389 kg Last Vital Signs Temp 96.9 F 05/11/24 06:57 Pulse 70 05/11/24 06:57 Resp 18 05/11/24 06:57 BP 138/81 05/11/24 06:57 Pulse Ox 95 05/11/24 06:57 O2 Del Method Room Air 05/11/24 06:57 Airway Mallampati Class: II TM Dist: <=3cm Neck ROM: Full Loose/Missing/Broken Teeth: No Heart: ok Lungs: ok Assessment and Plan Assessment Anesthesia Assessment: Anesthesia Plan Discussed and Chart Reviewed Final Anesthetic Review Family History of Problems with Anesthesia: No History of Problems with Anesthesia: No NPO: Yes ASA Class: II Final Preanesthetic Review: No Changes in Pt Med Stat, Meds/Allgs Chart Reviewed, Consent Obtained/Reviewed and Anes Risks/Benef Reviewed Patient Risk: Low Procedure Risk: Low Anesthetic Plan Anesthetic Plan: GA and Agree w/ Assess. and Plan Disposition: Standard PACU
[2024-05-11] MEDS: Lactated Ringers 500 ML 999 ML IV (07:25)
--- NOTE | 2024-05-11 08:42 | P.OP_ITS ---
Operative Note Operative Note Date of Service: 05/11/24 Narrative: PreOperative Diagnosis:? ? Left Renal stone Post Operative Diagnosis:?Left? Renal stone Procedure:?Left? ESWL Surgeon:?Dr Reshma De Leon Anesthesia:? General Indications for procedure: The patient understands there is a risk of bruising or hematoma to the kidney, infection, and stone migration following the procedure and subsequent intervention may be required.? - Imaging Cluster measuring 7 mm Procedure: After informed consent was verified the patient was brought to the operating room and placed in a supine position.? Anesthesia was performed per protocol. Safety pause time-out was performed. Imaging was displayed in the room and late rality confirmed. ESWL was performed.?The stone was visualized on both fluoroscopy and ultrasound.? Shockwave lithotripsy was performed, with a maximum rate of 120 hertz. After the first 300 shocks a pause for 3 minutes was completed.? A total of 2500 shocks delivered. Good fragmentation of the stone was appreciated. The patient tolerated the procedure well and was transferred to the recovery a riccardo upon completion. Complications: None
== END 2024-05-11 09:57 | disposition home or self-care (01) ==
PROVIDERS: PCP Nurse Practitioner Community Health; Visit Provider Urology
PROC: (CPT 50590; principal; 2024-05-11 07:30)
DX: N20.0 Calculus of kidney (principal); Z87.442 Personal history of urinary calculi; Z87.891 Personal history of nicotine dependence
CPT/HCPCS: 50590; 74018; J0131; J0690; J1940; J2704; J3010

== ENCOUNTER → 2024-05-11 05:59 | Outpatient (BNV) | payer MEDICARE, MEDICAID, SELFPAY | PROVIDERS: PCP Nurse Practitioner Community Health; Visit Provider Urology | DX: N20.0 Calculus of kidney (principal) | CPT/HCPCS: 50590 ==

== ENCOUNTER 2024-07-04 07:33 | Outpatient (REF) | payer MEDICARE, MEDICAID, SELFPAY ==
--- NOTE | ~2024-07-04 | CT_ITS ---
EXAMINATION: CT ABDOMEN AND PELVIS WITHOUT CONTRAST CLINICAL INFORMATION: Calculus of kidney COMPARISON: 01/28/2024 TECHNIQUE: Multidetector volumetric imaging was performed from the superior aspect of the liver through the pubic symphysis. Sagittal and coronal reformatted images were obtained on the technologist's workstation. This CT examination was performed using dose optimization techniques as appropriate, variously including the following: *Automated exposure control *Adjustment of mA and/or kV according to patient size (this includes techniques or standardized protocols for targeted exams where dose is matched to indication/reason for exam; i.e. extremities or head) *Use of iterative reconstruction technique DLP: 388 mGy-cm FINDINGS: LUNG BASES: The visualized lung bases are unremarkable. LIVER, GALLBLADDER, AND BILIARY TREE: The liver is normal in size, shape, and attenuation. No focal hepatic lesion or biliary ductal dilatation is present. The gallbladder is unremarkable with no evidence of radiopaque gallstones, gallbladder wall thickening, or obvious pericholecystic inflammatory changes. PANCREAS: Unremarkable. SPLEEN: Unremarkable. ADRENAL GLANDS: Unremarkable. KIDNEYS AND URETERS: The kidneys are normal in size, shape, and attenuation. No hydronephrosis, hydroureter, or calculi seen. No perinephric stranding. The previous left renal pelvis calculus is no longer seen. BLADDER: Decompressed. No calculi. GASTROINTESTINAL TRACT: The stomach is unremarkable. Normal caliber small bowel. No obstruction. No colonic wall thickening or inflammation. The appendix is not seen. ABDOMINAL WALL: No significant hernia is appreciated. There appears to be pelvic floor laxity. LYMPH NODES: Normal. VASCULAR: Normal caliber aorta with mild arthroscopic calcification. PELVIC VISCERA: Anteverted uterus. Right adnexal cysts are seen measuring 3.3 cm and 3.8 cm. These are simple appearing. No change from prior. OSSEOUS STRUCTURES: No acute or suspicious osseous abnormality. Mild degenerative changes throughout the spine. CT/CT kidney stone IMPRESSION: No acute finding in the abdomen or pelvis. No hydronephrosis or nephrolithiasis. The previous left renal pelvis calculus is no longer seen. Unchanged appearance of the right adnexal simple-appearing cysts. No specific follow-up recommended. Fleischner guidelines were followed. Electronically signed by: Juan F Finn MD 07/19/2024 09:09 AM EDT
--- NOTE | ~2024-07-04 | XR_ITS ---
EXAMINATION: XR ABDOMEN KUB CLINICAL INFORMATION: Calculus in the kidney. COMPARISON: CT dated 07/04/2024. TECHNIQUE: AP view of the abdomen. FINDINGS: No appreciable radiodense renal or ureteral calculi are identified. Phleboliths are present in the pelvis. No prevertebral bladder calculi. Nondilated bowel gas pattern. Ldxim-ll-opnyfhiq volume of stool in the colon. Bones are osteopenic. Degenerative spondylosis is most notable in the lower lumbar spine at L4-L5 and L5-S1. Hip joints appear relatively well preserved. XR/XR KUB IMPRESSION: 1. No appreciable radiodense renal or ureteral calculi. 2. Nonobstructive bowel gas pattern. Electronically signed by: Chano Shelton MD 07/25/2024 07:49 PM EDT
== END 2024-07-04 07:34 | disposition home or self-care (01) ==
LOC: HO.CT 07:33
PROVIDERS: PCP Nurse Practitioner Community Health; Visit Provider Urology
DX: N20.0 Calculus of kidney (principal)
CPT/HCPCS: 74018; 74176

== ENCOUNTER 2024-07-21 09:50 | Outpatient (AMB) | payer MEDICARE, MEDICAID, SELFPAY ==
--- NOTE | 2024-06-07 14:49 | MHC.OFFVIS ---
Intake Visit Reasons: ESWL follow up/US Allergies No Known Allergies Allergy (Mild, Verified 03/10/24 14:24) NA PFS Medical History (Updated 02/10/24 @ 11:09 by Reshma De Leon MD) Impingement syndrome of left shoulder History of kidney stones Surgical History (Updated 05/09/24 @ 13:48 by Dinorah Hernadez RN) Hx of lithotripsy Hx of cystoscopy Hx of colonoscopy Family History Mother No problems noted. Father No problems noted. Social History Alcohol intake: current Alcohol intake frequency: does not drink Patient Tobacco Use Status: Former Tobacco user Use of substances other than those prescribed or required for medical reasons: No Are you DNR?: No Advance Directives: No Advance Directives Information Provided: Yes Coding
--- NOTE | 2024-07-21 10:07 | A.OFFVIS_ITS ---
Intake Visit Reasons: ESWL follow up/CT (set) Intake Note: Patient is present for ESWL/CT F/U Urology Medication:NONE Antibiotic Allergy:NONE Blood Thinner:NONE [employer] Required: No Allergies No Known Allergies Allergy (Mild, Verified 07/21/24 10:08) NA Medication List - Last Reconciled 07/21/24 by Reshma De Leon MD No Known Home Meds HPI Comments Details: 07/21/24--status post repeat left ESWL, 05/11/2024--CTAP--The previous left renal pelvis calculus is no longer seen. Good fragmentation. Reviewed again today 24 hour urine from 09/28/2023 which was within normal limits other than urine sodium, high normal at 148. Follow-up in 1 year with KUB. Review of chart: 03/10/2024. Tessa is here for cysto stent removal. Review of KUB Xray notes Left kidney stone there is some change in stone consistency post ESWL but stone burden remaining is similar to pre-ESWL. Discussed repeat Left ESWL. 02/04/24--Tessa is a 67-year-old female who presents today to the office for a follow-up. I reviewed recent CTAP- 1.4 cm stone left UPJ with mild hydronephrosis. The patient denies flank pain. I have discussed cystoscopy stent insertion and then followed by Left ESWL. 09/03/2023?She is followed today for US results. She has seen Dr. Novak on 02/20/2022 for kidney stones. Renal US in 6 months was ordered during that time. The Patient is not on any medications. She states that she has been healthy, she does take vitamins, calcium, magnesium, vitamin D supplements, as well as multi- vitamins. She states that she was diagnosed with kidney stones in [address] Novak on 02/20/2022. I reviewed the renal US results from 08/12/2023 revealed A 1.6 cm shadowing left renal lower pole calculus is seen. No definite right renal calculus is seen. I have discussed that there is a significant conflicting in measurements comparing to the 11/2022, and 08/2022 US. I want to further evaluate the kidneys with a CAT scan in follow-up. Plan: 24- hour urine collection test was ordered. CT stone protocol. Follow-up via Tele-health to discuss the results. [facility] Medical History Impingement syndrome of left shoulder History of kidney stones Surgical History Hx of lithotripsy Hx of cystoscopy Hx of colonoscopy Family History Mother No problems noted. Father No problems noted. Social History Alcohol intake: current Alcohol intake frequency: does not drink Patient Tobacco Use Status: Former Tobacco user Review of Systems Const All systems reviewed & are unremarkable except as noted in HPI and below Reports no additional complaints Eyes Reports no additional complaints ENT Reports no additional complaints Card Reports no additional complaints Resp Reports no additional complaints GI Reports no additional complaints Reports as per HPI Musc Reports no additional complaints Skin/Breast Reports system reviewed and no additional complaints, except as documented Neuro Reports no additional complaints Psych Reports no additional complaints Endo Reports no additional complaints Aram/Lymph Reports no additional complaints Aller/Immun Reports no additional complaints Results AMB Urinalysis, Automated UA Leukoctes 0 Carlos/uL Last Edit by AMIRA Hatfield on 07/21/24 10:28 UA Nitrite Negative Last Edit by AMIRA Hatfield on 07/21/24 10:28 UA Urobilinogen 0.2 mg/dL Last Edit by AMIRA Hatfield on 07/21/24 10:2 8 UA Protein 0 mg/dL Last Edit by AMIRA Hatfield on 07/21/24 10:28 UA pH 6.0 Last Edit by AMIRA Hatfield on 07/21/24 10:28 UA Blood 0 Landon/uL Last Edit by AMIRA Hatfield on 07/21/24 10:28 UA Specific [place] 1.025 Last Edit by AMIRA Hatfield on 07/21/24 10: 28 UA Ketone Negative Last Edit by AMIRA Hatfield on 07/21/24 10:28 UA Bilirubin 0 mg/dL Last Edit by AMIRA Hatfeild on 07/21/24 10:28 UA Glucose 0 mg/dL Last Edit by AMIRA Hatfield on 07/21/24 10:28 Results Reviewed Results Reviewed: Laboratory Last Values Urine pH (Auto) 6.0 07/21/24 10:19 Specific [place] (Auto) 1.025 07/21/24 10:19 Urine Protein (Auto) 0 mg/dL 07/21/24 10:19 Glucose (UA)(Auto) 0 mg/dL 07/21/24 10:19 Urine Ketones (Auto) Negative 07/21/24 10:19 Urine Blood (Auto) 0 Landon/uL 07/21/24 10:19 Urine Nitrite (Auto) Negative 07/21/24 10:19 Urine Bilirubin (Auto) 0 mg/dL 07/21/24 10:19 Urine Urobilinogen (Auto) 0.2 mg/dL 07/21/24 10:19 Leukocyte Esterase (Auto) 0 Carlos/uL 07/21/24 10:19 Date of Service: 07/04/24 CT ABDOMEN AND PELVIS WITHOUT CONTRAST CLINICAL INFORMATION: Calculus of kidney COMPARISON: 01/28/2024 TECHNIQUE: Multidetector volumetric imaging was performed from the superior aspect of the liver through the pubic symphysis. Sagittal and coronal reformatted images were obtained on the technologist's workstation. This CT examination was performed using dose optimization techniques as appropriate, variously including the following: *Automated exposure control *Adjustment of mA and/or kV according to patient size (this includes techniques or standardized protocols for targeted exams where dose is matched to indication/reason for exam; i.e. extremities or head) *Use of iterative reconstruction technique DLP: 388 mGy-cm FINDINGS: LUNG BASES: The visualized lung bases are unremarkable. LIVER, GALLBLADDER, AND BILIARY TREE: The liver is normal in size, shape, and attenuation. No focal hepatic lesion or biliary ductal dilatation is present. The gallbladder is unremarkable with no evidence of radiopaque gallstones, gallbladder wall thickening, or obvious pericholecystic inflammatory changes. PANCREAS: Unremarkable. SPLEEN: Unremarkable. ADRENAL GLANDS: Unremarkable. KIDNEYS AND URETERS: The kidneys are normal in size, shape, and attenuation. No hydronephrosis, hydroureter, or calculi seen. No perinephric stranding. The previous left renal pelvis calculus is no longer seen. BLADDER: Decompressed. No calculi. GASTROINTESTINAL TRACT: The stomach is unremarkable. Normal caliber small bowel. No obstruction. No colonic wall thickening or inflammation. The appendix is not seen. ABDOMINAL WALL: No significant hernia is appreciated. There appears to be pelvic floor laxity. LYMPH NODES: Normal. VASCULAR: Normal caliber aorta with mild arthroscopic calcification. PELVIC VISCERA: Anteverted uterus. Right adnexal cysts are seen measuring 3.3 cm and 3.8 cm. These are simple appearing. No change from prior. OSSEOUS STRUCTURES: No acute or suspicious osseous abnormality. Mild degenerative changes throughout the spine. IMPRESSION: No acute finding in the abdomen or pelvis. No hydronephrosis or nephrolithiasis. The previous left renal pelvis calculus is no longer seen. Unchanged appearance of the right adnexal simple-appearing cysts. No specific follow-up recommended. Date of Service: 02/25/24 EXAMINATION: XR ABDOMEN KUB CLINICAL INDICATION: Status-post ESWL and left ureteric stent placement. COMPARISON: KUB dated 02/10/2024; CT abdomen and pelvis dated 02/03/2024. TECHNIQUE: 2 AP views of the abdomen and pelvis are submitted. FINDINGS: The bowel gas pattern is normal, with no evidence of ileus or obstruction. A 2.1 cm left renal lower pole calculus is redemonstrated. No further calculus is noted. There is stable, good positioning of a double pigtail left ureteric stent. No acute osseous abnormality is seen. IMPRESSION: Stable examination. A 2.1 cm left renal calculus is seen, now positioned in the expected vicinity of a lower pole calyx. A well-positioned double pigtail left ureteric stent is seen. Assessment & Plan Assessment & Plan (1) Nephrolithiasis: Code(s): N20.0 - Calculus of kidney Category: Medical Plan status post repeat left ESWL, 05/11/2024--CTAP--The previous left renal pelvis calculus is no longer seen. Good fragmentation. Reviewed again today 24 hour urine from 09/28/2023 which was within normal limits other than urine sodium, high normal at 148. Follow-up in 1 year with K[facility]. Orders: Orders AMB Urinalysis Automated Today Z13.9 - Encounter for screening, unspecified XR KUB 10 Months N20.0 - Calculus of kidney Patient Instructions: The patient had an opportunity to ask questions regarding treatment plan. The patient expressed understanding and agreement with the above treatment plan. The patient is aware they should contact our office by phone for worsening of their current condition or the appearance of new symptoms. Compliance is encouraged with any medications and followup testing that is ordered. It is a privilege to be allowed the opportunity to participate in the urologic care of your patient. If you have any questions or concerns regarding treatment for the above conditions please do not hesitate to contact me. The office telephone contact is [phone]. This note is constructed in part using voice recognition software. While every effort has been made to ensure accuracy felt hat pouncing operator hand errors may have been included. Yours sincerely, Reshma De Leon MD Coding Level of Care Code Global (66617) Diagnoses Nephrolithiasis N20.0
== END 2024-07-21 10:56 | disposition home or self-care (01) ==
PROVIDERS: PCP Nurse Practitioner Community Health; Visit Provider Urology
DX: Z13.9 Encounter for screening, unspecified (principal); N20.0 Calculus of kidney
CPT/HCPCS: 99024

== ENCOUNTER → 2024-07-21 09:50 | Outpatient (BNVA) | payer MEDICARE, MEDICAID, SELFPAY | PROVIDERS: PCP Nurse Practitioner Community Health; Visit Provider Urology | DX: N20.0 Calculus of kidney (principal) | CPT/HCPCS: 81003; 99212 ==

== ENCOUNTER 2024-12-15 10:58 | Outpatient (REF) | payer MEDICARE, MEDICAID, SELFPAY ==
--- NOTE | ~2024-12-15 | MM_ITS ---
EXAMINATION: DXA BONE DENSITY AXIAL HISTORY: Estrogen deficiency TECHNIQUE: Getup Cloud Dual energy absorptiometry (DEXA) of the lumbar spine, total left hip, and femoral neck was performed. COMPARISON: There are no prior studies for comparison. FINDINGS: The bone mineral density of the lumbar spine is 0.987 with a T-score of -1.6, and a Z-score of -0.3. The bone mineral density of the left total hip is 0.889 with a T-score of -0.9, and a Z-score of 0.1. The bone mineral density of the left femoral neck is 0.839 with a T-score of -1.4, and a Z-score of -0.1. FRACTURE RISK: The FRAX index suggests a risk of major osteoporotic fracture of 9.2%, and of hip fracture 1.0%. MM/XR DEXA axial skeleton IMPRESSION: Based on bone mineral density, and according to World Health Organization (WHO) criteria, the diagnosis is consistent with osteopenia. All bone density values are in grams per centimeter squared (g/cm2). Statistically, 68% of repeat scans fall within 1 SD (+/- 0.010 g/cm2 for AP spine L1-L4) and 1 SD (+/- 0.012 g/cm2 for femur total) FRAX is a trademark of the [employer] [place] for Metabolic Bone Disease, a World Health Organization (WHO) Collaborating Center. Electronically signed by: Keshawn Arita MD 12/16/2024 08:[address] [facility]
--- NOTE | ~2024-12-15 | MM_ITS ---
EXAMINATION: MM SCREENING DIGITAL BREAST TOMOSYNTHESIS, BILATERAL CLINICAL INFORMATION: Screening. Asymptomatic. COMPARISON: Mammography: Comparison is made with available priors TECHNIQUE: Digital breast mammography with tomosynthesis is performed in both the craniocaudal and mediolateral oblique views along with computer-aided detection (CAD). FINDINGS: There are scattered areas of fibroglandular density (ACR BI-RADS breast composition Category b). There are no significant masses, abnormal calcifications, or other abnormalities. MM/MM tomosynthesis screening BI IMPRESSION: No mammographic evidence of malignancy. ASSESSMENT: BI-RADS BI-RADS 1 - Negative RECOMMENDATION: Routine annual mammography screening. 1 year F/U This examination should not preclude the clinical evaluation of a suspicious palpable abnormality. This patient's information was entered into a reminder system with a target due date for their next mammogram. Electronically signed by: Marlyn Silva DO 12/22/2024 12:14 PM [facility]
--- OUTSIDE RECORDS SUMMARY | 2024-12-15 11:01 | XMS_ITS | Clinical Summary ---
Author Organization [employer] Address [address] [facility] [address] [place] [address] Care Team Providers Care Insurance Verification Rep Name Role Phone Sachin Grier NP Primary Care Provider Allergies No known active allergies Medications Multiple Vitamins-Mineral s (One A Day Women 50 Plus) tablet Take by mouth. Active Multiple Vitamins-Mineral s (WOMENS BONE HEALTH PO) Take by mouth. Active Active Problems Problem Noted Date Diagnosed Date Bilateral wrist pain 05/25/2024 Overview (05/25/2024): Improved per patient, aware of topical therapies discussed (see HPI). Doesn't feel the pain is bad enough to warrant referral/eval with hand specialist and not interested in IA steroid injections at this time. Encouraged to let us know/followup if any new or worsening symptoms of concern. 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 Declines meds including trial of topical voltaren. Doesn't like to take meds and just wants xray at this time. Left wrist xray ordered, avoid stress/lifting with left wrist pending results. Recommend soft velcro wrist support - explained where to purchase these and how to use. Encourage trial of topical voltaren gel to the wrist but pt declines at this time and states oral motrin she tried didn't really help the pain. Doubt fracture as symptoms more suggestive of wrist strain/overuse/thumb based arthritis, discussed with pt but encouraged using the wrist support when up and about during the day, don't need to wear while sleeping. Can elevate left hand wrist on pillow if improves comfort. Recurrent kidney stones 08/10/2023 Encounters Date Type Department Care Team Description 09/22/2024 11:30 AM EST Office Visit [facility] MED[facility] [address] [place] [address] Sachin Grier NP Renal stones (Primary Dx); Right kidney mass; Post-menopausal; Healthcare maintenance 09/22/[address] [facility] [address] [place] [address] Sachin Grier NP 09/22/2024 Telephone [facility] MED[facility] [address] [place] [address] Sachin Grier NP Need colonoscopy and CT reports from Last 3 Months Immunizations Name Administration Dates Next Due Influenza Injectable Quadriv alant Preservative Free IIV4 MDCK 01/06/2020,12/03/2017 Influenza injectable quadriv alent IIV4 with preservative 08/10/2023 Influenza injectable quadrivalent preservative f ree 09/04/2018,11/07/2016 Influenza, IIV3, injectable 11/17/2013, 3 Influenza, Split (incl. purified surface antigen ) 11/17/2013,12/09/2012 Influenza, trivalent, adjuvanted 07/25/2024 Moderna Covid-19 Vaccine 12+ 09/14/2023 Pneumococcal Conjugate PCV 20 09/22/2024 TD (adult), 2 Lf tetanus tox oid, preservative free, adsorbed 07/31/2009 Tdap 08/10/2023,04/18/2016 Zoster, Recombinant 09/24/2021,05/26/2021 Social History Tobacco Use Types Packs/Day Years Used Date Smoking Tobacco: Never Passive Smoke Exposure: Never Smokeless Tobacco: Never Tobacco Cessation:Counseling Given: Not Answered Alcohol Use Standard Drinks/Week Comments Not Currently 0 (1 standard drink = 0.6 oz pur e alcohol) tequilla occasionally Alcohol Answer Date Recorded How often do you have a drink containing alcohol ? 0 07/25/2024 How many drinks containing a lcohol do you have on a typical day when you are drinking? 0 07/25/2024 How often do you have six or more drinks on one occasion? 0 07/25/2024 Housing Stability Answer Date Recorded What is your housing situation today? I have raj gutierrez 07/25/[address] you li ve. Do you have problems with any of the following? None of the above 07/25/2024 Food Insecurity Answer Date Recorded Within the past 12 months, y ou worried that your food would run out before you got money to buy more: Never True 07/25/2024 Within the past 12 months,th e food you bought just didn't last and you didn't have enough money to get more: Never True Transportation Answer Date Recorded In the past 12 months, has l ack of transportation kept you from medical appts, meetings, work or from getting things needed for daily living? No 07/25/2024 Intimate Partner Violence Answer Date R ecorded Within the last year, have y ou been afraid of your partner or ex-partner? 2 07/25/2024 Within the last year, have y ou been humiliated or emotionally abused in other ways by your partner or ex-partner? 2 Within the last year, have y ou been kicked, hit, slapped, or otherwise physically hurt by your partner or ex-partner? 2 07/25/2024 Within the last year, have y ou been raped or forced to have any kind of sexual activity by your partner or ex-partner? 2 07/25/2024 Utilities Answer Date Recorded In the past 12 months, has t he [employer], gas, oil or water company threatened to shut off services in your home? No 07/25/2024 Depression Answer Date Recorded Patient Health Questionnaire-2 Score 0 09/22/2024 Internet Access Answer Date Recorded Internet Access Q1 Yes 07/25/2024 Internet Access Q2 Not on file 07/25/2024 Comments No Sex and Gender Information Value Date Recorded Sex Assigned at Female 09/11/2022 9:07 AM EDT Legal Sex Female 8:37 PM EDT Gender Identity Female 06/10/2023 4:03 PM EDT Sexual Orientation Choose not to disclose 2022 4:03 PM EDT Occupation Industry Job Start Date Job End Date [employer] Not on file Not on file Not on file Last Filed Vital Signs Vital Sign Reading Time Taken Comments Blood Pressure 141/85 09/22/2024 11:23 AM EST Pulse 81 09/22/2024 11:23 AM EST Temperature 36.4 ??C (97.5 ??F) 09/22/2024 11:[address] Respiratory Rate 16 08/10/2023 8:27 AM EDT Oxygen Saturation 95% 07/25/2024 3:04 PM EDT Inhaled Oxygen Concentration - - Weight 75.8 kg (167 lb) 09/22/2024 11:23 AM EST Height 162.6 cm (5' 4 ) 09/22/2024 11:23 AM EST Body Mass Index 28.67 09/22/2024 11:23 AM EST Plan of Treatment Upcoming Encounters Date Type Department Care Team (Late st Contact Info) Description 09/28/2025 10:00 AM EST Office Visit [facility] [address] [place] [address] Sachin Grier NP [address] [place] [address] Health Maintenance Due Date Last Done Comments CT Colonography 1957 FIT DNA/Cologuard 1957 FIT 1955 FOBT 1955 Sigmoidoscopy 1955 Hepatitis C Screening 1975 COVID-19 Vaccine ( season) 2024 06/18/2024, 09/14/2023, 08/28/2022, Additional history exists Alcohol/Substance Use Screening 07/25/2025 07/25/2024 SDOH Screening 07/25/2025 07/25/2024 Depression Screening 09/22/2025 09/22/2024, 09/22/20 24 Tobacco Screening 09/22/2025 09/22/2024 Mammogram 10/15/2025 10/15/2023, 11/10, 11/04/2018 Colonoscopy 04/08/2029 04/08/2019, 04/08/2019 Colorectal Cancer Screening 04/08/2029 RSV Patients and Patients Aged 60 years or older (1 - 1-dose 75+ series) 2032 DTaP/Tdap/Td Vaccines (3 - Td or Tdap) 08/10/2033 08/10/2023, 04/18/2016, 07/31/2009 Zoster Vaccines Completed 09/24/2021, 05/26/2021 Cervical Cancer Screening Discontinued HPV/Cotest Discontinued 09/14/2023 Pap Smear Discontinued 09/14/2023 Influenza Vaccine Completed 07/25/2024, , 01/06/2020, Additional history exists Pneumococcal Vaccine: 50+ Years Completed 09/22/2024 HIB Vaccines Aged Out No longer eligi ble based on patient's age to complete this topic HPV Vaccines Aged Out No longer eligi ble based on patient's age to complete this topic Hepatitis A Vaccines Aged Out No long er eligible based on patient's age to complete this topic Hepatitis B Vaccines Aged Out No long er eligible based on patient's age to complete this topic IPV Vaccines Aged Out No longer eligi ble based on patient's age to complete this topic Meningococcal Vaccine Aged Out No richar yue eligible based on patient's age to complete this topic RSV under 20 months Aged Out No longe r eligible based on patient's age to complete this topic Rotavirus Vaccines Aged Out No longer eligible based on patient's age to complete this topic Procedures Procedure Name Priority Date/Time Associated Diagnosis Comments BI MAMMOGRAM SCREENING BILATERAL Routine 10/15/2023 Healthcare maintenance Screening mammogram for breast cancer THIN PREP PAP, WITH HPV Routine 09/14/2023 9:12 AM EST Screening for cervical cancer COLONOSCOPY Routine 04/08/2019 12:00 AM EDT from Last 3 Months or Most Recently Relevant to Health Maintenance Results * BI Mammogram Screening Bilateral (10/15/2023) Anatomical Region Laterality Modality Breast Bilateral Mammography Sachin Grier NP IMG BI PROCEDURES Final Resu lt * THIN PREP PAP, WITH HPV (09/14/2023 9:12 AM EST) PAP, LB WITH CT/GC AND HPV Patient Name: TESSA WATERMAN [facility] Comment: Patient : ?[id number] (Age: 67) Lab Accession #: ? [id number] Collection Date: ? 09/14/2023 Accession Date: ? 09/14/2023 Sign Out Date: ? 09/28/2023 Tissue Source: 1: THINPREP MAILROOM CLERK PAP TEST, CERVICAL: Final Diagnosis: NEGATIVE FOR INTRAEPITHELIAL LESION OR MALIGNANCY. Atrophy. Satisfactory for evaluation. Scant squamous cellularity present. Procedures/Addenda: Human Papilloma Virus, High-Risk (Any Dx) ? Status: Signed Out Interpretation: Negative Methodology: Getup Cloud Aptima HPV mRNA assay (Nucleic Acid Amplification Test, NAAT). Clinical History: Date of Last Menstrual Period: ?? not available Menstrual History: ?? Post-menopausal Contraceptive History: ??not available Ancillary Testing: ??HPV (any dx) Additional TP Case imaged by the ThinPrep Imaging System with manual rescreening or review. Performed at [facility] Laboratory department of Cytology, Tony Mendoza PA Clinical History (other): ??Z12.4, routine screen Phone #: ??[phone], On-Call Pathologist: ??[id number] Testing performed or reported by [facility] Reference Formerly [facility], a Service of [facility], [address] [place] [address] Gio Navarro MD, Powerhouse Helper [facility]# [id number] Pap Vial Cervix uteri structure / Unknown 09/14/2023 9:12 AM EST 09/14/2023 5:50 PM EST us Sachin Grier NP LAB CYTOLOGY ORDERABLES Charlene krishna Result [address] [address] * COLONOSCOPY: SALLY MEYER MD (04/08/2019 12:00 AM EDT) Anatomical Region Laterality Modality Endoscopy 04/08/2019 Narrative 04/08/2019 12:00 AM EDT Refer to Fovea for result details Legacy Procedure: COLONOSCOPY: SALLY MEYER MD Procedure Note Provider, MD Genaro - 03/05/2023 Refer to Fovea for result details Legacy Procedure: COLONOSCOPY: SALLY MEYER MD Historical Provider ENDOSCOPY PROCEDURE ORDER RADHA Final Result from Last 3 Months or Most Recently Relevant to Health Maintenance Insurance [facility] STANDARD MEDICARE Care Teams Insurance Verification Rep Relationship Specialty Start Date End Date Sachin Grier NP [address] [place] [address] PCP - General Internal Medicine 07/24/23
--- OUTSIDE RECORDS SUMMARY | 2024-12-15 11:01 | XMS_ITS | Encounter Summary ---
Author Organization [employer] Address [address] [facility] 7t [place] [address] Care Team Providers Care Graphic Designer Name Role Phone Sachin Grier NP Primary Care Provider Encounter Details Date Type Department Care Team (Late st Contact Info) Description 01/26/2024 Orders Only [facility] [address] [place] [address] Sachin Grier NP [address] [place] [address] Pigmented skin lesion Social History Tobacco Use Types Packs/Day Years Used Date Smoking Tobacco: Never Smokeless Tobacco: Never Alcohol Use Standard Drinks/Week Comments Yes 0 (1 standard drink = 0.6 oz pur e alcohol) tequilla occasionally Depression Answer Date Recorded Patient Health Questionnaire-2 Score 0 08/10/2023 Comments No Sex and Gender Information Value Date Recorded Sex Assigned at Female 09/11/2022 9:07 AM EDT Legal Sex Female 8:37 PM EDT Gender Identity Female 06/10/2023 4:03 PM EDT Sexual Orientation Choose not to disclose 2022 4:03 PM EDT documented as of this encounter Plan of Treatment Upcoming Encounters Date Type Department Care Team (Late st Contact Info) Description 09/28/2025 10:00 AM EST Office Visit [facility] [address] [place] [address] Sachin Grier NP [address] [place] [address] documented as of this encounter Procedures Procedure Name Priority Date/Time Associated Diagnosis Comments AMB REFERRAL TO DERMATOLOGY Routine 01/14/2024 Pigmented skin lesion documented in this encounter Results * Referral to Dermatology (01/14/2024) Sachin Grier NP OUTPATIENT REFERRAL ORDERABL ES Final Result documented in this encounter Visit Diagnoses Diagnosis Pigmented skin lesion Dyschromia, unspecified documented in this encounter Care Teams Graphic Designer Relationship Specialty Start Date End Date Sachin Grier NP [address] [place] [address] PCP - General Internal Medicine 07/24/23 documented as of this encounter
--- OUTSIDE RECORDS SUMMARY | 2024-12-15 11:01 | XMS_ITS | Encounter Summary ---
Author Organization [employer] Address [address] [facility] [address] [place] [address] Care Team Providers Care Sorter Pricer Name Role Phone Sachin Grier MANAGER ENGINE Primary Care Provider + [phone] Encounter Details Date Type Department Care Team (Late st Contact Info) Description 09/22/2024 Orders Only [place] [facility] [address] [place] [address] Sachin Grier NP [address] [place] [address] Social History Tobacco Use Types Packs/Day Years Used Date Smoking Tobacco: Never Passive Smoke Exposure: Never Smokeless Tobacco: Never Alcohol Use Standard Drinks/Week Comments Not Currently [...] your housing situation today? 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 on file Not on file Not on file documented as of this encounter Plan of Treatment Upcoming Encounters Date Type Department Care Team (Late st Contact Info) Description 09/28/2025 10:00 AM EST Office Visit [facility] [address] [place] [address] Sachin Grier NP [address] [place] [address] documented as of this encounter Procedures Procedure Name Priority Date/Time Associated Diagnosis Comments CT ABDOMEN PELVIS WO CONTRAST Routine 07/04/2024 2:58 PM EDT HM COLONOSCOPY Routine 04/08/2019 3:00 PM EDT documented in this encounter Results * CT ABDOMEN PELVIS WO CONTRAST (07/04/2024 2:58 PM EDT) Anatomical Region Laterality Modality Computed Tomogra phy us Sachin Grier NP IMG CT PROCEDURES Final Resu lt * Hm Colonoscopy (04/08/2019 3:00 PM EDT) Sachin Grier NP HEALTH MAINTENANCE Final Res ult documented in this encounter Visit Diagnoses Not on filedocumented in this encounter Care Teams Sorter Pricer Relationship Specialty Start Date End Date Sachin Grier NP [address] [place] [address] PCP - General Internal Medicine 07/24/23 documented as of this encounter
--- OUTSIDE RECORDS SUMMARY | 2024-12-15 11:01 | XMS_ITS | Encounter Summary ---
Author Organization [employer] Address [address] [facility] 7t [place] [address] Care Team Providers Care Colleter Name Role Phone Sachin Grier NP Primary Care Provider Encounter Details Date Type Department Care Team (Latest Contact Info) Description 01/06/2019 Abstract [facility] Dental, Provider, DDS Social History Tobacco Use Types Packs/Day Years Used Date Smoking Tobacco: Never Assessed Comments Unknown Sex and Gender Information Value Date Recorded [...] Description 09/28/2025 10:00 AM EST Office Visit [place] [facility] MED[facility] [address] [place] [address] Sachin Grier NP [address] [place] [address] documented as of this encounter Visit Diagnoses Not on filedocumented in this encounter Care Teams Colleter Relationship Specialty Start Date End Date Sachin Grier NP [address] [place] [address] PCP - General Internal Medicine 07/24/23 documented as of this encounter
--- OUTSIDE RECORDS SUMMARY | 2024-12-15 11:01 | XMS_ITS | Encounter Summary ---
Author Organization [facility] [employer] Address [address] [facility] 7t [place] [address] Care Team Providers Care Police Commanding Officer Name Role Phone Sachin Grier CALIBRATION TECHNICIAN Primary Care Provider [phone] Reason for Visit * Reason Onset Date Comments Urology apt 08/27/2023 Encounter Details Date Type Department Care Team (Late st Contact Info) Description 08/27/2023 Telephone [place] [facility] MED[facility] [address] [place] [address] Sachin Grier NP [address] [place] [address] Urology apt Social History Tobacco Use Types Packs/Day Years Used Date Smoking Tobacco: Never Smokeless Tobacco: Never Alcohol Use Standard Drinks/Week Comments Yes 0 (1 standard drink = 0.6 oz pur e alcohol) tequilla occasionally Depression Answer Date Recorded Patient Health Questionnaire-2 Score 0 08/10/2023 Comments Unknown Sex and Gender Information Value Date Recorded Sex Assigned at Female 09/11/2022 9:07 AM EDT Legal Sex Female 8:37 PM EDT Gender Identity Female 06/10/2023 4:03 PM EDT Sexual Orientation Choose not to disclose 2022 4:03 PM EDT documented as of this encounter Miscellaneous Notes * Telephone Encounter - Ntaasha Salazar - 09/03/2023 3:46 PM EDT Patient called stating that she now has an appointment with [facility] on 01/01/24. Patient also states that she is having a CT scan and a 24 hour urine catch, ordered by Dr Chantell Salinas. Patient wants JL to know what is going on with this. * Telephone Encounter - Sandra Ring - 08/27/2023 3:35 PM EDT Patient called left message has a urology apt on September 03 at 11:30 am. documented in this encounter Plan of Treatment Upcoming Encounters Date Type Department Care Team (Late st Contact Info) Description 09/28/2025 10:00 AM EST Office Visit [facility] [address] [facility] [place] [address] Sachin Grier NP [address] [place] [address] documented as of this encounter Visit Diagnoses Not on filedocumented in this encounter Care Teams Police Commanding Officer Relationship Specialty Start Date End Date Sachin Grier NP [address] [place] [address] PCP - General Internal Medicine 07/24/23 documented as of this encounter
== END 2024-12-15 10:59 | disposition home or self-care (01) ==
LOC: HO.MAMMO 10:58
PROVIDERS: PCP Nurse Practitioner Community Health; Visit Provider Nurse Practitioner Community Health
DX: Z12.31 Encounter for screening mammogram for malignant neoplasm of breast (principal); Z13.820 Encounter for screening for osteoporosis; Z78.0 Asymptomatic menopausal state
CPT/HCPCS: 77063; 77067; 77080

== ENCOUNTER → 2024-12-15 11:30 | Outpatient (BNV) | payer MEDICARE, MEDICAID, SELFPAY | PROVIDERS: PCP Nurse Practitioner Community Health; Visit Provider Radiology Diagnostic Radiology | DX: Z12.31 Encounter for screening mammogram for malignant neoplasm of breast (principal) | CPT/HCPCS: 77063; 77067 ==